=== PATIENT | male | born 1990 | race Two or more races ===

== ENCOUNTER 2022-10-09 12:42 | Emergency (ER) | payer SELFPAY ==
[~2022-10-09] VITALS: Ht 172.7 cm; Wt 75.0 kg
[2022-10-09 15:19] VITALS: BP 150/92
== END 2022-10-09 16:09 | disposition left against medical advice (07) ==
LOC: EMS 12:42
DX: R10.12 Left upper quadrant pain (principal); Z53.21 Procedure and treatment not carried out due to patient leaving prior to being seen by health care provider
CPT/HCPCS: 99281; Z7502